=== PATIENT | female | born 1940 | race Hispanic/Latino ===

== ENCOUNTER 2017-07-04 07:38 | Day surgery (SDC) | payer MEDICARE ==
[2017-07-04] MEDS ORDERED: ECOTRIN PO ONE (08:27)
[2017-07-04 08:49] LABS: Basophils % (Auto) 0.1 % (0.0-1.8); Eosinophils # (Auto) 0.2 K/mm3 (0.0-0.4); Hematocrit 40.3 % (30.3-42.9); Hemoglobin 13.5 gm/dl (10.1-14.3); Lymphocytes # (Auto) 2.1 K/mm3 (1.2-5.4); Lymphocytes % (Auto) 39.3 % (13.4-35.0); Mean Corpuscular HGB Conc 33 % (30-34); Mean Corpuscular Hemoglobin 30 pg (28-32); Mean Corpuscular Volume 91 fl (79-97); Monocytes # (Auto) 0.4 K/mm3 (0.0-0.8); Monocytes % (Auto) 8.3 % (0.0-7.3); Platelet Count 268 K/mm3 (140-440); Red Blood Count 4.44 M/mm3 (3.65-5.03); Red Cell Distribution Width 12.9 % (13.2-15.2)
[2017-07-04 09:00] LABS: BUN/Creatinine Ratio 27; Blood Urea Nitrogen 16 mg/dL (7-17); Calcium 9.2 mg/dL (8.4-10.2); Hemolysis Index 3
[2017-07-04] MEDS ORDERED: NACL 0.9% 500 ML 500 ML IV SCH (09:00)
[2017-07-04 09:10] LABS: INR 0.89 (0.87-1.13)
[2017-07-04] MEDS: VERSED ONE ×2 (11:13→11:33)
[2017-07-04] MEDS: XYLOCAINE 2% INFILTRATI ONE ×3 (11:13→11:43)
[2017-07-04] MEDS: SUBLIMAZE ONE ×2 (11:13→11:33)
[2017-07-04] MEDS: CALAN ONE ×2 (11:14→11:35)
[2017-07-04] MEDS: HEPARIN 10,000 UNITS/10 ML ONE ×2 (11:14→11:35)
[2017-07-04] MEDS: HEPARIN/NS 5000 UNIT/500ML(CATH LAB) 1,000 ML IR ONE ×2 (11:15→11:33)
[2017-07-04] MEDS: NITROGLYCERIN SYRINGE 3 ML ONE ×2 (11:16→11:35)
--- NOTE | 2017-07-04 13:19 | Short Stay Summary ---
Short Stay Documentation Date of service: 07/04/17 - History H&P: obtained from office - Allergies and Medications Current Medications: Allergies No Known Allergies Allergy (Verified 07/04/17 08:27) Home Medications Medication Instructions Recorded Confirmed Last Taken Type Excedrin Extra Strength Caplet 1 cap PO DAILY 07/04/17 07/04/17 07/03/17 History 1 Levothyroxine Sodium [Synthroid] 75 mcg PO DAILY 07/04/17 07/04/17 07/04/17 History 75mcg Metoprolol Succinate [Toprol Xl] 100 mg PO DAILY 07/04/17 07/04/17 07/03/17 History 100mg Active Medications Sodium Chloride (Nacl 0.9% 500 Ml) 500 mls @ 50 mls/hr IV DIRECT STEVE Stop: 07/04/17 18:59 Last Admin: 07/04/17 09:00 Dose: 50 mls/hr - Physical exam General appearance: no acute distress Integumentary: no rash HEENT: Atraumatic Lungs: Clear to auscultation Breasts: deferred Heart: Regular rate Gastrointestinal: normal Female Genitourinary: deferred Rectal Exam: deferred Extremities: no ischemia Neurological: Normal gait - Brief post op/procedure progress note Date of procedure: 07/04/17 Pre-op diagnosis: Abnormal MPI Post-op diagnosis: same Procedure: LHC LV gram Anesthesia: MAC Findings: See report Surgeon: LORE WOODRUFF Estimated blood loss: none Pathology: none Condition: stable - Hospital course Hospital course: Uneventful - Disposition Condition at discharge: Good Disposition: DC-01 TO HOME OR SELFCARE Short Stay Discharge Plan Activity: advance as tolerated, no driving until cleared by PCP (for 2 days) Weight Bearing Status: Non-Weight Bearing (for 2 days) Diet: low fat, low cholesterol, low salt Wound: keep clean and dry Follow up with: MATEO LMAAR MD [Primary Care Provider] - 7 Days
[2017-07-04 14:35] VITALS: BP 134/78
--- NOTE | 2017-07-06 07:53 | Cardiac Catherization Report ---
INDICATION FOR PROCEDURE: Atypical chest pain, abnormal myocardial perfusion scan. REFERRING PHYSICIAN: Dr. Daija Santo. PROCEDURES PERFORMED: 1. Selective left coronary angiography 2. Selective right coronary angiography. 3. Left ventriculography. DESCRIPTION OF PROCEDURE: After obtaining written consent, the patient was draped using sterile technique. A 2% lidocaine was initially injected into the right wrist. Attempts at inserting a 6-[place] vascular sheath into the right radial artery failed due to the inability to insert the guidewire. Attention was then shifted to the groin, 2% lidocaine was injected into the right groin. A 5-[place] vascular sheath was inserted into the right common femoral artery. A 5-[place] JL3.5 catheter was used to selectively engage left coronary artery. A 5-[place] JR4 catheter was used to selectively engage the right coronary artery. A 5-[place] JR4 catheter was used to hand inject a left ventriculogram. The sedation administered was 1 mg of IV Versed and 25 mcg of IV fentanyl. Physician and patient [id number] sedation start time is 11:00 a.m. Physician patient [id number] sedation stop time is 11:33 a.m. Total sedation time is 33 minutes. No complications occurred during the procedure. Hemostasis was achieved at the end of the procedure using manual pressure. Estimated blood loss was minimal. FINDINGS: HEMODYNAMICS: 1. The aortic pressure was 172/91. 2. Left ventricular systolic pressure was 168 mmHg. 3. LVEDP was measured at 16 mmHg. CARDIAC STRUCTURES: The left ventricle was normal in size and systolic function. The left ventricular ejection fraction was 60% with normal contractility. CORONARY ANATOMY: 1. This is a right dominant circulation. 2. The left main has evidence of a 20% distal disease. 3. The left anterior descending artery has evidence of a focal 50% stenosis in the mid segment. 4. The left circumflex artery has mild luminal irregularities. 5. The right coronary artery has mild luminal irregularities. IMPRESSION: 1. 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 2. 20% distal left main disease. 3. Normal left ventricular size and systolic function. 4. Normal LVEDP. RECOMMENDATIONS: The patient will be recommended for continuation of medical therapy and follow up with referring podopediatrician. JOB# [id number] PEDRO/LUAN
== END 2017-07-04 15:00 | disposition home or self-care (01) ==
LOC: CATHLABREC 07:38
PROVIDERS: ATTEND Internal Medicine
DX: R94.30 Abnormal result of cardiovascular function study, unspecified (principal); I10 Essential (primary) hypertension; Z82.49 Family history of ischemic heart disease and other diseases of the circulatory system; Z79.01 Long term (current) use of anticoagulants; E78.5 Hyperlipidemia, unspecified; I34.0 Nonrheumatic mitral (valve) insufficiency; I36.1 Nonrheumatic tricuspid (valve) insufficiency
CPT/HCPCS: 36415; 80048; 85025; 85610; 85730; 93005; 93010; 93458; 99156; 99157; C1760; C1894; J1644; J2250; J3010; J7040; Q9967